=== PATIENT | female | born 1990 | race Two or more races ===

== ENCOUNTER 2018-12-14 14:18 | Day surgery (SDC) | payer BC ==
[~2018-12-14] VITALS: Ht 33 cm; Wt 0.5 kg
[2018-12-14] MEDS ORDERED: ceFAZolin 1GM/50ML 100 ML IV ONE (15:08)
[2018-12-14 15:30] LABS: Eosinophils # (auto) 0.2 uL; Hemoglobin 10.9 g/dL (12.2-16.2); Monocytes # (auto) 0.5 uL; Neutrophils # (auto) 5.4 uL; White Blood Cell 8.3 10^3/uL (4.4-10.8)
[2018-12-14 15:32] LABS: Basophils # (auto) 0.1 uL; Basophils % (auto) 0.7 % (0.0-2.0); Eosinophils % (auto) 2.1 % (0.0-7.0); Hematocrit 34.5 % (36.0-46.0); Lymphocytes # (auto) 2.2 uL; Lymphocytes % (auto) 26.1 % (10.0-50.0); Mean Corpuscular Hemoglobin 23.4 pg (28.0-32.0); Mean Corpuscular Hgb Conc. 31.5 g/dL (32.0-36.0); Monocytes % (auto) 6.3 % (0.0-12.0); Neutrophils % (auto) 64.8 % (37.0-80.0); Platelet Count (auto) 397 10^3/uL (140-450); Red Blood Cells 4.66 10^6/uL (4.0-5.20)
[2018-12-14 15:38] LABS: Red Cell Distribution Width 20.5 % (11.8-14.3)
[2018-12-14 15:47] LABS: INR 0.94 (0.9-1.15); Partial Thromboplastin Time 26.2 sec (23.64-32.05)
[2018-12-14 16:33] LABS: Albumin 3.6 g/dL (3.4-5.0); Calcium 8.9 mg/dL (8.5-10.1); Potassium 4.4 mmol/L (3.5-5.1)
[2018-12-14 16:39] LABS: BUN/Creatinine Ratio 17.8; Bilirubin, Total 0.1 mg/dL (0.2-1.0); Total Protein 8.1 g/dL (6.4-8.2)
[2018-12-14] MEDS ORDERED: ONDANSETRON HCL 4 MG/2 ML VIAL IV PRN (17:15)
[2018-12-14] MEDS ORDERED: FERRIC SUBSULFATE TOPICAL SOLN 30 ML BTL ONE (18:04)
[2018-12-14] MEDS ORDERED: MIDAZOLAM HCL 1MG/1ML-2 ML VIAL IV PRN (18:30)
[2018-12-14] MEDS ORDERED: ONDANSETRON HCL 4 MG/2 ML VIAL IV ONE (18:30)
[2018-12-14] MEDS ORDERED: KETOROLAC TROMETH 15 mg/ml 1ML VL IV ONE (18:30)
[2018-12-14] MEDS ORDERED: ePHEDrine SULFATE 50 MG/ML AMP IV PRN (18:30)
[2018-12-14] MEDS ORDERED: LABETALOL HCL 5 MG/ML 4ML SYRINGE IV PRN (18:30)
[2018-12-14] MEDS ORDERED: HYDROmorphone HCL 2 MG/ML VL IV PRN (18:30)
[2018-12-14] MEDS ORDERED: BUPIVACAINE 0.25% INJ 50ML VIAL ONE (18:31)
[2018-12-14] MEDS ORDERED: LIDOCAINE W/ EPINEPHRINE 1 % INJ 30ML ONE (18:31)
[2018-12-14] MEDS ORDERED: fentaNYL CITRATE 100 MCG/2 ML VL ONE (18:33)
[2018-12-14] MEDS ORDERED: MIDAZOLAM HCL 1MG/1ML-2 ML VIAL ONE (18:33)
[2018-12-14] MEDS ORDERED: DexAMETHasone SOD PHOS 10MG/1ML VIAL INJ ONE (18:38)
[2018-12-14] MEDS ORDERED: PROPOFOL 10 MG/ML 20 ML IV ONE (18:38)
[2018-12-14] MEDS ORDERED: KETOROLAC TROMETH 30 MG/ML 1ML VIAL ONE (18:56)
[2018-12-14] MEDS ORDERED: MORPHINE SULFATE 4 MG/ML SYR/VIAL IV ONE (20:00)
[2018-12-14 20:03] VITALS: BP 128/98
== END 2018-12-14 20:12 | disposition home or self-care (01) ==
LOC: SUR 14:18
PROVIDERS: ATTEND Obstetrics & Gynecology
DX: R87.613 High grade squamous intraepithelial lesion on cytologic smear of cervix (HGSIL) (principal); E66.8 Other obesity; D64.9 Anemia, unspecified; Z79.899 Other long term (current) drug therapy; Z68.34 Body mass index [BMI] 34.0-34.9, adult
CPT/HCPCS: 36415; 57520; 80053; 84702; 85025; 85610; 85730; 88305; J0690; J1100; J1885; J2001; J2250; J2704; J3010; J3490